=== PATIENT | female | born 1965 | race Two or more races ===

== ENCOUNTER 2019-02-06 20:59 | Emergency (ER) | payer MEDICAID, OTHER ==
[~2019-02-06] VITALS: Ht 160 cm; Wt 76.7 kg
--- NOTE | 2019-02-06 21:43 | NUR ---
MARY JANE FROM WORK [facility] [employer] [place] DIZINESS AND NAUSEA -V, HX OF ASTHMA, IN BED 2, AWAITING MED EVAL
[2019-02-06] MEDS ORDERED: MECLIZINE HCL 12.5 MG TABLET PO ONE (22:00)
[2019-02-06] MEDS ORDERED: MECLIZINE HCL 12.5 MG TABLET ONE (22:01)
[2019-02-06] MEDS ORDERED: ONDANSETRON HCL/PF 4 MG/2 ML VIAL ONE (22:15)
[2019-02-06] MEDS ORDERED: MORPHINE SULFATE INJ 4 MG/ML DISP.SYRIN ONE (22:15)
[2019-02-06] MEDS ORDERED: ONDANSETRON 4 MG TAB.RAPDIS ONE (22:29)
[2019-02-06] MEDS ORDERED: LORAZEPAM INJ 2 MG/ML VIAL IM ONE (22:30)
[2019-02-06] MEDS ORDERED: LORAZEPAM INJ 2 MG/ML VIAL ONE (22:30)
[2019-02-06] MEDS ORDERED: ONDANSETRON 4 MG TAB.RAPDIS SL ONE (22:30)
--- NOTE | 2019-02-06 23:17 | NUR ---
Patient discharged to home in stable condition. Written and verbal after care instructions given. Patient verbalizes understanding of instruction.
[2019-02-06 23:18] VITALS: BP 168/95
== END 2019-02-06 23:18 | disposition home or self-care (01) ==
LOC: ER 21:01
DX: R42 Dizziness and giddiness (principal); J45.909 Unspecified asthma, uncomplicated
CPT/HCPCS: 96372; 99283; J2060; J7040; J8597; Q0162; J2270; J2405